=== PATIENT | male | born 1975 | race Caucasian/White ===

== ENCOUNTER 2017-10-11 08:36 | Day surgery (SDC) | payer OTHER ==
[~2017-10-11] VITALS: Ht 177.8 cm; Wt 103.8 kg
[~2017-10-11 08:36] MED LIST: CEPH500 PO; HYDACE5 PO; LOSA50 PO; NAPR500 PO; NAPR550 PO; OXYC5 PO; SULTRIDS PO; TYLENOL PO
== END 2017-10-11 12:45 | disposition home or self-care (01) ==
LOC: ORSCSDS 08:36
PROVIDERS: Orthopaedic Surgery
PROC: 0LS14ZZ Reposition Right Shoulder Tendon, Percutaneous Endoscopic Approach (ICD-10-PCS; principal; 2017-10-11 10:00)
PROC: 0LQ14ZZ Repair Right Shoulder Tendon, Percutaneous Endoscopic Approach (ICD-10-PCS; principal; 2017-10-11 10:00)
PROC: 0RNJ4ZZ Release Right Shoulder Joint, Percutaneous Endoscopic Approach (ICD-10-PCS; principal; 2017-10-11 10:00)
DX: M75.21 Bicipital tendinitis, right shoulder (principal); M75.111 Incomplete rotator cuff tear or rupture of right shoulder, not specified as traumatic; M75.51 Bursitis of right shoulder; M75.31 Calcific tendinitis of right shoulder; M75.41 Impingement syndrome of right shoulder; I10 Essential (primary) hypertension
CPT/HCPCS: C1713; J0171; J0690; J1100; J1885; J2250; J2405; J3010; J7120

== ENCOUNTER 2022-01-06 06:01 | Day surgery (SDC) | payer OTHER ==
[~2022-01-06] VITALS: Ht 177.8 cm; Wt 109.5 kg
[~2022-01-06 06:01] MED LIST changes: +CELE100 PO; +TRAM50 PO
[2022-01-06] MEDS ORDERED: OXYACE7.5T PO (06:24)
--- NOTE | 2022-01-06 06:54 | NUR ---
Patient confirms NPO status and agrees with scheduled surgery. History, Chart, Medications and Allergies reviewed before start of procedure. Lungs clear T/O to Auscultation. Patient States Post-Procedure ride home has been arranged with a friend.
--- NOTE | 2022-01-06 09:01 | NUR ---
PT TOLERATING PO FLUIDS/SOLIDS
--- NOTE | 2022-01-06 09:01 | NUR ---
Dressing to procedure site clean, dry, intact with no visible drainage, swelling, erythema or bruising noted.
--- NOTE | 2022-01-06 09:33 | NUR ---
Discharge instructions reviewed with patient. Patient verbalizes understanding. Copy given to patient to take home. Discharged via wheelchair to private car for ride home.
== END 2022-01-06 09:34 | disposition home or self-care (01) ==
LOC: ORSCMMR 06:01 → ORD 07:30 → ORSCMMR 07:30
PROVIDERS: Surgery
PROC: 0WQF0ZZ Repair Abdominal Wall, Open Approach (ICD-10-PCS; principal; 2022-01-06 07:30)
DX: K42.9 Umbilical hernia without obstruction or gangrene (principal); I10 Essential (primary) hypertension; Z79.899 Other long term (current) drug therapy; E66.9 Obesity, unspecified; Z68.34 Body mass index [BMI] 34.0-34.9, adult
CPT/HCPCS: A9270; J0690; J1100; J1885; J2250; J2405; J2704; J2795; J3010; J7120